=== PATIENT | female | born 2005 | race American Indian/Alaskan Native ===

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

== ENCOUNTER 2024-01-19 21:42 | Emergency (ER) | payer SELFPAY ==
[2024-01-19 22:17] LABS: BASOPHILS PERCENT AUTO 0.1 % (0.0-1.0); EOSINOPHILS PERCENT AUTO 0.3 % (1.0-3.0); HEMATOCRIT 43.1 % (37.0-47.0); HEMOGLOBIN 14.9 g/dL (12.0-16.0); LYMPHOCYTES PERCENT AUTO 16.6 % (20.5-50.1); MEAN CORPUSCULAR HGB CONC 34.6 g/dL (33.0-35.0); MEAN CORPUSCULAR VOLUME 83.9 fL (80-100); MONOCYTES PERCENT AUTO 5.2 % (2-8); NEUTROPHILS PERCENT AUTO 77.8 % (42.2-75.2); PLATELET COUNT,PLT 369 10^3/uL (150-450); RED BLOOD CELL COUNT 5.14 10^6/uL (4.2-5.4); WHITE BLOOD CELL COUNT,WBC 15.3 10^3/uL (5.0-10.0)
[2024-01-19] MEDS: Sodium Chloride 0.9% 10 ML Syringe FLUSH PRN (22:23)
[2024-01-19 22:37] LABS: A/G RATIO 1.1; ALANINE AMINOTRANSFERASE,ALT 40 U/L (14-59); ALBUMIN 4.2 g/dL (3.4-5.0); ALKALINE PHOSPHATASE 101 U/L (46-116); ANION GAP 16.8 mEq/L (7-13); ASPARTATE AMNIOTRANSFERASE,AST 18 U/L (15-37); BILIRUBIN TOTAL 0.3 mg/dL (0.2-1.0); BLOOD UREA NITROGEN,BUN 11 mg/dL (7-18); BUN/CREATININE RATIO 10.4 (No establ ref range); CALCIUM 9.6 mg/dL (8.5-10.1); CARBON DIOXIDE,CO2 21 mmol/L (21-32); CHLORIDE,CL 106 mmol/L (98-107); CREATININE 1.06 mg/dL (0.55-1.02); EST CRCL DRUG DOSING (CG) 86.11 mL/min; GLUCOSE RANDOM 119 mg/dL (70-99); POTASSIUM,K 3.8 mmol/L (3.5-5.1); PROTEIN TOTAL,TP 7.9 g/dL (6.4-8.2); SODIUM,NA 140 mmol/L (136-145)
[2024-01-19 22:38] LABS: ESTIMATED GFR 78 mL/min (>=60); ETHANOL BLOOD MEDICAL < 3 mg/dL (0)
[2024-01-19 22:51] LABS: APPEARANCE,URINE SLIGHTLY CLOUDY (CLEAR); BILIRUBIN,URINE NEGATIVE (NEGATIVE); COLOR,URINE YELLOW (YELLOW); GLUCOSE,URINE NEGATIVE (NEGATIVE); KETONES,URINE NEGATIVE (NEGATIVE); LEUKOCYTE ESTERASE,URINE SMALL (NEGATIVE); NITRITE,URINE NEGATIVE (NEGATIVE); OCCULT BLOOD,URINE LARGE (NEGATIVE); PROTEIN,URINE 30 (NEGATIVE); UROBILINOGEN,URINE 0.2 mg/dL (0.2-1.0)
[2024-01-19 22:52] LABS: AMPHETAMINES,URINE NEGATIVE (NEGATIVE); BARBITURATES,URINE NEGATIVE (NEGATIVE); BENZODIAZEPINE,URINE NEGATIVE (NEGATIVE); MDMA (ECSTASY), URINE NEGATIVE (NEGATIVE); METHADONE,URINE NEGATIVE (NEGATIVE); METHAMPHETAMINES,URINE NEGATIVE (NEGATIVE); OPIATES,URINE NEGATIVE (NEGATIVE); OXYCODONE,URINE NEGATIVE (NEGATIVE); PHENCYCLIDINE,URINE NEGATIVE (NEGATIVE); TCA,URINE NEGATIVE (NEGATIVE)
[2024-01-19 23:09] LABS: BACTERIA,URINE MODERATE /HPF (0-FEW/HPF); EPITHELIAL CELLS,URINE MODERATE /HPF (NOT SEEN); HYALINE CASTS,URINE MODERATE; MUCUS,URINE FEW /LPF (NOT SEEN); RBC,URINE 50-75 /HPF (0-5); WBC,URINE 40-50 /HPF (0-5/HPF)
[2024-01-19] MEDS: Iopamidol 612 MG/ML 100 ML Bottle IVPUSH ONE (23:17)
[2024-01-20 01:54] VITALS: BP 112/78; PULSE 99
== END 2024-01-20 01:50 | disposition home or self-care (01) ==
LOC: DL.ED 21:42
DX: S00.83XA Contusion of other part of head, initial encounter (principal); M54.6 Pain in thoracic spine; M54.2 Cervicalgia; Y04.8XXA Assault by other bodily force, initial encounter
CPT/HCPCS: 36415; 70450; 70486; 72125; 80053; 80305-QW; 80307; 81001; 81025; 85025; 87086; 99285; J3490; Q9967